=== PATIENT | female | born 1945 | race Caucasian/White ===

== ENCOUNTER 2017-07-18 20:09 | Emergency (ER) | payer MEDICARE, BC ==
[2017-07-18 20:30] VITALS: BP 164/78
--- NOTE | 2017-07-18 21:10 | UC ---
General HPI - HPI Summary HPI Summary: 71 year old female here with difficulty swallowing and unable to keep her secretions for the past one hour. She reports she gets esophageal spasm that resolves after 20 minutes but this persisted, prompting her to come to the ED. Symptoms started while she was eating. She denies feeling that food is stuck in her esophagus. She denies sob but reports pain on her chest. No other complaints. - History of Current Complaint Chief Complaint: UCGI Stated Complaint: THROAT COMPLAINT Time Seen by Provider: 07/18/17 20:34 Onset/Duration: Sudden Onset Timing: Constant Associated Signs & Symptoms: Positive: Nausea, Vomiting - Allergy/Home Medications Allergies/Adverse Reactions: Allergies Allergy/AdvReac Type Severity Reaction Status Date / Time Molds & Smuts Allergy Severe Airway Verified 07/18/17 20:18 Obstruction Penicillins Allergy Mild Itching Verified 07/18/17 20:18 Tree Extract Allergy Mild Congestion Verified 07/18/17 20:18 MILDEW Allergy Severe Airway Uncoded 07/18/17 20:18 Obstruction GRASS Allergy Mild Congestion Uncoded 07/18/17 20:18 Home Medications: Home Medications Hydrochlorothiazide TAB* [Hydrodiuril TAB*] 12.5 mg PO DAILY 07/18/17 [History Confirmed 07/18/17] Latanoprost 0.005%* [Xalatan 0.005%*] 1 drop BOTH EYES QPM 07/18/17 [History Confirmed 07/18/17] busPIRone TAB* [Buspar TAB*] 2.5 mg PO BID 07/18/17 [History Confirmed 07/18/17] PMH/Surg Hx/FS Hx/Imm Hx Previously Healthy: No Cardiovascular History: Cardiac Disease, Hypertension Respiratory History: COPD GI/ History: Gastroesophageal Reflux - Surgical History Surgical History: Yes Surgery Procedure, Year, and Place: 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 - Social History Alcohol Use: None Substance Use Type: None Smoking Status (MU): Never Smoked Tobacco - Immunization History Most Recent Influenza Vaccination: 2017 Review of Systems Gastrointestinal: Nausea All Other Systems Reviewed And Are Negative: Yes Physical Exam Triage Information Reviewed: Yes Appearance: Well-Appearing, No Pain Distress, Other: - patient actively spitting her saliva because she cant swallow Vital Signs: Initial Vital Signs Temp 37.2 C 07/18/17 20:22 Pulse 108 07/18/17 20:22 Resp 22 07/18/17 20:22 BP 164/78 07/18/17 20:22 Pulse Ox 100 07/18/17 20:22 Neck: Positive: Nontender Respiratory: Positive: Chest non-tender, Lungs clear, Normal breath sounds Abdomen Description: Positive: Nontender, No Organomegaly Skin Exam: Normal Course/Dx - Course Course Of Treatment: Given her symptoms for over two hours, I instructed patient to go to the ED so she can full cardiac evaluation. Patient did not want to go to the ED via ambulance. Instead, she called her daughter and her daughter took her to the ED. - Differential Dx - Multi-Symptom Differential Diagnoses: Cardiac Ischemia, CVA, Metabolic Abnormality Provider Diagnoses: Esophageal spasm vs. Cardiac ischemia Discharge - Discharge Plan Condition: Good Disposition: TRANS HIGHER LVL OF CARE FAC Referrals: Maegan Britt NP [Primary Care Provider] - Additional Instructions: Go to the Emergency department immediately
== END 2017-07-18 21:00 | disposition short-term general hospital (02) ==
LOC: UCEAST 20:09
DX: R13.10 Dysphagia, unspecified (principal); K22.4 Dyskinesia of esophagus; R11.0 Nausea; I10 Essential (primary) hypertension; J44.9 Chronic obstructive pulmonary disease, unspecified; K21.9 Gastro-esophageal reflux disease without esophagitis; Z88.0 Allergy status to penicillin
CPT/HCPCS: 99212; G0463

== ENCOUNTER 2017-07-18 21:12 | Emergency (ER) | payer MEDICARE, BC ==
[2017-07-18] MEDS ORDERED: Nitroglycerin TAB 0.4 MG* 0.4 MG TAB SL ONE (22:45)
[2017-07-18] MEDS ORDERED: LORazepam INJ* 2 MG/ML 1 ML VIAL IV PUSH ONE (22:46)
[2017-07-18] MEDS ORDERED: Aspirin TAB* 325 MG PO ONE (22:46)
[2017-07-18 22:47] LABS: Hematocrit 47 % (35-47); Hemoglobin 16.1 g/dl (12.0-16.0); Mean Corpuscular HGB Conc 34 g/dl (31-36); Mean Corpuscular Hemoglobin 32 pg (27-31); Mean Corpuscular Volume 92 fL (80-97); Mean Platelet Volume 10 um3 (7.4-10.4); Red Blood Count 5.11 10^6/ul (4.0-5.4); Red Cell Distribution Width 13 % (10.5-15); White Blood Count 10.7 10^3/ul (3.5-10.8)
[2017-07-18] MEDS ORDERED: Ondansetron INJ* 2 MG/ML VIAL IV ONE (22:48)
[2017-07-18 23:00] LABS: Albumin 4.7 g/dL (3.2-5.2); Calcium 9.8 mg/dL (8.6-10.3); EGFR African American 77.4 (>60); EGFR Non-African American 60.2 (>60); Potassium 3.5 mmol/L (3.5-5.0); Total Bilirubin 0.7 mg/dL (0.2-1.0); Total Protein 7.7 g/dL (6.4-8.9)
[2017-07-18 23:03] LABS: Troponin I 0.03 ng/mL (<0.04)
[2017-07-19] MEDS ORDERED: Iohexol 350* (CONTRAST) 500 ML MDV IV ONE (00:39)
--- NOTE | 2017-07-19 01:06 | ED ---
IElisa Rebecca, scribed for Serjio Tran MD on 07/19/17 at 0032 . Progress - Progress Note Progress Note: Pt was signed out by Dr. Palacios, pending disposition, awaiting labs. Re-Evaluation - Re-Evaluation First Eval Re-Evaluation Time: 00:28 Change: Improved Comment: Pt reports that she is feeling better, though she continues to be tachycardic. Second Eval Re-Evaluation Time: 00:50 Comment: Discussed the risks of refusing the Chest CTA. Course/Dx - Course Course Of Treatment: Pt was signed out by Dr. Palacios, pending dispo, awaiting cardiac labs. Upon re-evaluation, the pt's pain has resolved, however the pt is tachycardic. Tachycardia is suspected to be due to the anxiety of being in the hospital. I told her that she has a possibility of having a PE and I offered her a CTA of the chest which the she refused. I explained to her the consequences of not doing it include but are not limited to: blood clots in the lung and . She verbalized understanding and still chooses to refuse. Elevated BP noted. - Diagnoses Provider Diagnoses: GERD (gastroesophageal reflux disease), Atypical chest pain The documentation as recorded by the Elisa valdez Rebecca accurately reflects the service I personally performed and the decisions made by me, Serjio Tran MD.
[2017-07-19 01:16] VITALS: BP 149/79
--- NOTE | 2017-07-19 07:22 | RAD ---
INDICATION: Epigastric pain. COMPARISON: There are no prior studies available for comparison. TECHNIQUE: A portable view of the chest was obtained. FINDINGS: Cardiac and mediastinal contours appear to be within normal limits. The lungs are clear. No pleural effusion is seen. IMPRESSION: NO EVIDENCE FOR ACUTE DISEASE.
== END 2017-07-19 01:32 ==
LOC: ED 21:12
DX: K21.9 Gastro-esophageal reflux disease without esophagitis (principal); R07.89 Other chest pain
CPT/HCPCS: 36415; 71010; 80053; 83605; 84484; 85025; 93005; 96374; 96375; 99283; A9270-GY; J2060; J2405